=== PATIENT | male | born 1995 | race American Indian/Alaskan Native ===

== ENCOUNTER 2020-07-10 18:12 | Emergency (ER) | payer SELFPAY ==
[2020-07-10] MEDS ORDERED: MORPHINE 4 MG/1 ML INJ IM ONE (23:23)
--- NOTE | 2020-07-11 00:18 | XRay Report ---
PELVIS ONE VIEW INDICATION / CLINICAL INFORMATION: Trauma COMPARISON: None available. FINDINGS: BONES / JOINT(S): No acute fracture or subluxation. No significant arthritis. SOFT TISSUES: No significant abnormality. ADDITIONAL FINDINGS: None. Signer Name: Arie Karimi MD Signed: 07/11/2020 12:14 AM Workstation Name: [id number]
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
--- NOTE | 2020-07-11 00:22 | XRay Report ---
RIGHT FEMUR 2 VIEWS INDICATION / CLINICAL INFORMATION: Trauma COMPARISON: None available. FINDINGS: BONES / JOINT(S): No acute fracture or subluxation. No significant arthritis. SOFT TISSUES: No significant abnormality. ADDITIONAL FINDINGS: None. Signer Name: Arie Karimi MD Signed: 07/11/2020 12:17 AM Workstation Name: [id number]
--- NOTE | 2020-07-11 00:23 | XRay Report ---
RIGHT TIBIA AND FIBULA 2 VIEWS INDICATION / CLINICAL INFORMATION: Trauma COMPARISON: None available. FINDINGS: BONES / JOINT(S): No acute fracture or subluxation. No significant arthritis. SOFT TISSUES: No significant abnormality. ADDITIONAL FINDINGS: None. Signer Name: Arie Karimi MD Signed: 07/11/2020 12:19 AM Workstation Name: [id number]
[2020-07-11 02:00] VITALS: BP 120/81
== END 2020-07-11 00:59 | disposition home or self-care (01) ==
LOC: ED 18:12
DX: M79.604 Pain in right leg (principal); I10 Essential (primary) hypertension; Z79.899 Other long term (current) drug therapy; V29.49XA Motorcycle driver injured in collision with other motor vehicles in traffic accident, initial encounter; Y93.89 Activity, other specified; Y92.488 Other paved roadways as the place of occurrence of the external cause; Y99.8 Other external cause status
CPT/HCPCS: 72170; 73552; 73590; 96372; 99283; J2270